=== PATIENT | male | born 1975 | race Two or more races ===

== ENCOUNTER 2021-04-28 02:04 | Emergency (ER) | payer SELFPAY ==
[~2021-04-28] VITALS: Ht 180.3 cm; Wt 79.4 kg
[2021-04-28] MEDS ORDERED: LIDOCAINE 1% HCL (LOCAL ANESTH.) INJ 20ML MDV ONE (02:29)
[2021-04-28] MEDS ORDERED: BACITRACIN-POLYMYXIN B OPTH(EYE) OINT 3.5GM OP ONE (03:45)
[2021-04-28] MEDS ORDERED: BACITRACIN TOP OINT 1 UD PKG TOP ONE (03:52)
[2021-04-28 04:52] VITALS: BP 111/71
== END 2021-04-28 05:06 | disposition home or self-care (01) ==
LOC: ER 02:04 → EDBD 02:04 → ER 05:06
DX: S01.01XA Laceration without foreign body of scalp, initial encounter (principal); S09.8XXA Other specified injuries of head, initial encounter; V49.49XA Driver injured in collision with other motor vehicles in traffic accident, initial encounter; Y93.89 Activity, other specified; Y92.488 Other paved roadways as the place of occurrence of the external cause; Y99.8 Other external cause status
CPT/HCPCS: 12004; 70450; 70486; 99285; J2001; 12015